=== PATIENT | male | born 1950 | race Caucasian/White ===

== ENCOUNTER 2021-03-30 22:51 | Emergency (ER) | payer MEDICARE ==
[~2021-03-30] VITALS: Ht 182.9 cm; Wt 95.5 kg
[2021-03-30] MEDS ORDERED: LOSA-30 PO (22:57)
[2021-03-30 23:57] VITALS: BP 131/72
== END 2021-03-31 00:01 | disposition home or self-care (01) ==
LOC: EMS 22:53
DX: S01.81XA Laceration without foreign body of other part of head, initial encounter (principal); I10 Essential (primary) hypertension; W01.0XXA Fall on same level from slipping, tripping and stumbling without subsequent striking against object, initial encounter; Y93.89 Activity, other specified; Y92.89 Other specified places as the place of occurrence of the external cause; Y99.8 Other external cause status
CPT/HCPCS: 12011; 12013; 99282; Z7502